=== PATIENT | female | born 1955 | race Caucasian/White ===

== ENCOUNTER → 2021-05-07 | Outpatient (CLI) | payer MEDICARE, OTHER | LOC: HEART CORB 09:00 | DX: I25.10 Atherosclerotic heart disease of native coronary artery without angina pectoris (principal); R94.31 Abnormal electrocardiogram [ECG] [EKG]; R07.2 Precordial pain; R94.39 Abnormal result of other cardiovascular function study | CPT/HCPCS: 78452; A9502; J2785 ==